=== PATIENT | male | born 1945 ===

== ENCOUNTER 2022-11-25 08:31 | Emergency (ER) | payer OTHER, SELFPAY ==
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
[2022-11-25 08:35] VITALS: BP 152/75; PULSE 87; RESP 18; TEMP 36.3; O2SAT 97
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
[2022-11-25 12:08] VITALS: BP 148/82; PULSE 74; RESP 16; O2SAT 97
== END 2022-11-25 12:09 | disposition home or self-care (01) ==
PROVIDERS: Emergency Provider Emergency Medicine
DX: M54.2 Cervicalgia (principal)
CPT/HCPCS: 72125; 99284